=== PATIENT | male | born 2005 | race Hispanic/Latino ===

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

== ENCOUNTER 2024-06-14 13:48 | Emergency (ER) | payer SELFPAY ==
[~2024-06-14] VITALS: Ht 177.8 cm; Wt 125.2 kg
[~2024-06-14 13:48] MED LIST: IBUP-2070 PO
--- NOTE | 2024-06-14 14:25 | ERN ---
ED Note History of Present Illness Stated Complaint: RIGHT EYE PAIN Chief Complaint: Eye Problems Time Seen by MD: 13:48 Time Seen by Midlevel: 13:48 Dictation: The patient is a 19-year-old male with no past medical history who presents to the emergency department with complaints of right eye pain onset a week ago. Patient reports he had fallen a in hit him so with the corner of a a furniture in the eye. Reports he was seen at [facility] and discharge with no home treatments. Patient denies any visual deficits. Allergies: Coded Allergies: No Known Allergies (Unverified Allergy, Unknown, 06/15/22) Home Meds Active Scripts Ibuprofen (Ibuprofen) 600 Mg Tablet, 600 MG PO Q6H PRN for PAIN, #30 TAB Prov:WILEY RODGERS 06/15/22 Past Medical History Past Medical History: No Pertinent History Surgical History: None RN Note Reviewed/Agreed w/PFSH: Yes Review of System Dictation Constitutional: Negative for fever,chills, and weight loss Eyes: Negative for discharge. Positive for injury, pain,redness, ENT: Negative for injury,pain or swelling Cardiovascular: Negative for chest pain, palpitations, and edema Respiratory: Negative for shortness of breath, cough, and wheezing, Abdomen/GI: Negative for abdominal pain, nausea, vomiting, diarrhea, and constipation Back: Negative for injury and pain : Negative for injury, bleeding and discharge MS/Extremity: Negative for injury and deformity Skin: Negative for rash, and discoloration Neuro: Negative for headache, weakness, numbness, tingling, and seizure Psych: Negative for suicide ideation, homicidal ideation, and hallucinations Initial Vital Sign VS Vital Signs Date Time Temp Pulse Resp B/P (MAP) Pulse Ox O2 Delivery O2 Flow Rate FiO2 06/14/24 13:52 98.4 102 20 118/63 99 Room Air 0 06/14/24 14:56 21 Physical Exam Dictation Vital Signs reviewed General Appearance: Alert, oriented x 3, no acute distress, well developed, nourished. Head and Face: non-traumatic. Eyes: PERRL, pink conjunctivas, eyelid no trauma, anterior chamber with arcus senilis. Ears: Pinnas intact and no signs of trauma or erythema ear canals clear and no discharge TM no erythema Nose: No discharge, no bleeding. Oropharynx: Mouth normal, tongue pink. pharynx clear,no erythema, tonsils no exudates, no abscesses noted, mucous membrane moist Neck: Supple, non-tender, no thyromegaly, no masses, no JVD, no bruits Breast:Deferred Chest:No tenderness, no crepitus, no paradoxical movement, no retractions Lungs:Clear, well-ventilated, symmetric, no rales, no wheezing, no rhonchi, no stridor, good breath sounds bilaterally Heart: Regular rate, regular rhythm, no murmur, no gallops Vascular: no peripheral edema, Abdomen: Soft, positive bowel sounds, nondistended, no guarding, nontender, no rebound, no masses no hepatomegaly, no splenomegaly, no Barton's sign, no hernias. Rectal: Deferred Genital: Deferred Neurological: Normal speech, motor function intact, sensory function intact Musculoskeletal: Neck nontender, full range of motion, back nontender, full range of motion, Extremities: nontender, full range of motion Skin: Color pink, dry, no turgor, no rash, no lacerations, no abrasions, no contusions. Lymphatic: Deferred Results (Laboratory/Radiology) Labs Reviewed?: Yes ED Course ED Course Orders Procedure Category Date Status Time Tetracaine Hcl PHA 06/14/24 Complete (Pontocaine 0.5% 14:00 Fluorescein Sodium PHA 06/14/24 Complete (Fwxck-N-Ojfsb At) 14:00 Current Medications Medications (Trade) Dose Ordered Sig/Jenna Route PRN Reason Start Time Stop Time Status Last Admin Dose Admin Fluorescein Sodium (Uopjs-Q-Gjftx At) 1 strip ONCE ONCE OP 06/14/24 14:00 06/14/24 14:03 DC 06/14/24 14:40 Tetracaine HCl (Pontocaine 0.5% Ophth Soln) 2 drop ONCE ONCE OP 06/14/24 14:00 06/14/24 14:03 DC 06/14/24 14:39 Vital Signs Date Time Temp Pulse Resp B/P (MAP) Pulse Ox O2 Delivery O2 Flow Rate FiO2 06/14/24 14:56 98.1 95 16 116/60 99 Room Air* 0 21 06/14/24 13:52 98.4 102 20 118/63 99 Room Air 0 Medical Decision Making MDM The patient is a 19-year-old male with no past medical history who presents to the emergency department with complaints of right eye pain onset a week ago. Patient reports he had fallen a in hit him so with the corner of a a furniture in the eye. Reports he was seen at [facility] and discharge with no home treatments. Patient denies any visual deficits. On physical exam patient did not have any obvious abrasions to conjunctiva . Ocular motor intact. No obvious injury to pupil. Patient denies any visual deficits. Patient instructed to follow up with a Ophthalmology as soon as he gets discharged. Patient agrees to follow up. Differential diagnosis: Corneal abrasion, conjunctivitis, foreign body Need for hospitalization: Patient does not meet criteria for hospitalization. There are no social concerns with this patient. DX & DISP Disposition: Discharge Departure Impression: Primary Impression: Pain, eye, right Condition: Stable Additional Instructions: Please follow up with brazing machine operator automatic as soon as possible. [facility] [address], [facility] [phone] FOLLOW-UP WITH PRIMARY CARE PROVIDER IN 1 TO 2 DAYS. TAKE MEDICATIONS DIRECTED HERE IN THE EMERGENCY ROOM. OKAY TO CONTINUE HOME MEDICATIONS UNLESS OTHERWISE DISCUSSED DURING YOUR VISIT IN THE EMERGENCY ROOM TODAY. RETURN TO YOUR NEAREST EMERGENCY ROOM IF SYMPTOMS WORSEN OR IF THERE IS NO IMPROVEMENT. CALL 911 IF YOU NEED IMMEDIATE ASSISTANCE. TAKE TYLENOL OR MOTRIN [id number] NEEDED AND IF NO CONTRAINDICATIONS ARE PRESENT. INCREASE ORAL HYDRATION. A WOUND CULTURE OR URINE CULTURE WAS ORDERED HERE IN THE EMERGENCY ROOM DEPARTMENT PLEASE FOLLOW-UP WITH PRIMARY CARE PROVIDER AND ADVISE THEM TO GET REPEAT PORTS FROM OUR FACILITY. IF YOU HAD ANY BRAEDEN WRAP/SPLINTS THAT WERE APPLIED HERE, PLEASE DO NOT REMOVE THEM UNTIL YOU SEE YOUR PRIMARY CARE OR SPECIALTY. Referrals: SELF,REFERRAL (PCP) Time of Disposition: 14:52 I have examined patient, & reviewed all documents, & agreed W/ the Diagnosis, and Plan RASHEED MARIN Jun 14, 2024 14:25 SANTOS KAUFFMAN DO Jun 16, 2024 10:25
[2024-06-14] MEDS: TETRACAINE HCL 0.5% 4 ML OPHTH SOLN OP ONE (14:39)
[2024-06-14] MEDS: FLUORESCEIN SODIUM 1 STRIP STRIP OP ONE (14:40)
[2024-06-14 14:56] VITALS: BP 116/60; PULSE 95; RESP 16; TEMP 98.1; O2SAT 99
--- NOTE | 2024-06-14 15:05 | NUR ---
UNABLE TO DEPART DUE TO REGISTRATION PROCESS
== END 2024-06-14 15:15 | disposition home or self-care (01) ==
LOC: EDH 13:48
DX: H57.11 Ocular pain, right eye (principal); Z79.899 Other long term (current) drug therapy; W18.39XA Other fall on same level, initial encounter; Y93.89 Activity, other specified; Y92.89 Other specified places as the place of occurrence of the external cause; Y99.8 Other external cause status
CPT/HCPCS: 99283

== ENCOUNTER 2024-07-07 01:20 | Emergency (ER) | payer SELFPAY ==
[~2024-07-07] VITALS: Ht 177.8 cm; Wt 124.7 kg
--- NOTE | 2024-07-07 02:02 | ERN ---
ED Note History of Present Illness Stated Complaint: C/O PAIN TO PENIS WITH PAIN/BURNING WHEN VOIDING Chief Complaint: Penis Problem Time Seen by MD: :27 Time Seen by Midlevel: :30 Dictation: 19-year-old male coming in complaining of dysuria upon voiding for three days. Denies any fevers, back pain, nausea, vomiting or abdominal pain. Allergies: Coded Allergies: No Known Allergies (Unverified Allergy, Unknown, 06/15/22) Home Meds Active Scripts Sulfamethoxazole/Trimethoprim (Bactrim Ds Tablet) 800 Mg-160 Mg Tablet, 1 TAB PO BID for 7 Days, #14 TAB 0 Refills Prov:LYNN LYONS RV TECHNICIAN 07/07/24 Ibuprofen (Ibuprofen) 600 Mg Tablet, 600 MG PO Q6H PRN for PAIN, #30 TAB Prov:WILEY RODGERS V A R [employer]LECTIONS REP 06/15/22 Past Medical History Past Medical History: No Pertinent History Surgical History: None Review of System Dictation Constitutional: Negative for fever,chills, and weight loss Eyes: Negative for injury, pain,redness, and discharge ENT: Negative for injury,pain or swelling Cardiovascular: Negative for chest pain, palpitations, and edema Respiratory: Negative for shortness of breath, cough, and wheezing, Abdomen/GI: Negative for abdominal pain, nausea, vomiting, diarrhea, and constipation Back: Negative for injury and pain : Complaining of pain when he urinates MS/Extremity: Negative for injury and deformity Skin: Negative for rash, and discoloration Neuro: Negative for headache, weakness, numbness, tingling, and seizure Psych: Negative for suicide ideation, homicidal ideation, and hallucinations Review of Systems: was completed Initial Vital Sign VS Vital Signs Date Time Temp Pulse Resp B/P (MAP) Pulse Ox O2 Delivery O2 Flow Rate FiO2 07/07/24 01:23 97.3 100 20 123/96 99 Room Air Physical Exam Dictation General: awake, alert, NAD Head/Face: Normocephalic, atraumatic Eyes: PERRL, EOMI, vision at baseline ENT: oral cavity clear, TMs clear, no signs of infection Neck: Trachea midline, supple, no nuchal rigidity Cardiovascular: RRR, normal S1/S2, No MRGs, no JVD Respiratory: CTAB, no respiratory distress, No rales or wheezes Abdomen: Soft, non-tender, non-distended, normal bowel sounds, no guarding or rebound. Skin: Warm, dry, normal turgor, no rash MS/Extremity: Pulses equal, no cyanosis, neurovascular intact, FROM Neuro: COAx4, GCS 15, strength 5/5, CN 2-12 intact, normal cerebellar exam, normal gait, Psych: Normal behavior, mood, and affect normal Results (Laboratory/Radiology) Laboratory/Radiology Laboratory Tests Test 07/07/24 01:25 Urine Color YELLOW (YELLOW) Urine Appearance CLOUDY (CLEAR) H Urine pH 6.0 (5.0-8.0) Urine Specific [place] 1.024 (1.001-1.031) Urine Protein NEGATIVE mg/dL (NEGATIVE) Urine Glucose (UA) NEGATIVE mg/dL (NEGATIVE) Urine Ketones NEGATIVE mg/dL (NEGATIVE) Urine Occult Blood SMALL (NEGATIVE) H Urine Nitrate NEGATIVE (NEGATIVE) Urine Bilirubin NEGATIVE mg/dL (NEGATIVE) Urine Urobilinogen 2.0 mg/dL (0.2-1.0) H Urine Leukocyte Esterase 500 Marvin/uL (NEGATIVE) H Urine RBC 11-25 /HPF (0-1) H Urine WBC TNTC /HPF (0-1) H Urine Squamous Epithelial Cells RARE /HPF (0-2) Urine Bacteria FEW /HPF (None Seen) Labs Reviewed?: Yes ED Course ED Course Orders Procedure Category Date Status Time Urinalysis Profile LAB 07/07/24 Complete 01:27 Chlamydia & Gc Pcr [facility]I 07/07/24 In Process 01:27 Culture Urine CAMI 07/07/24 In Process 02:41 Ceftriaxone 1g Vial PHA 07/07/24 Complete (Rocephine 1g Inj) 02:45 Ketorolac PHA 07/07/24 Verified Tromethamine 15mg/Ml 02:52 Current Medications Medications (Trade) Dose Ordered Sig/Jenna Route PRN Reason Start Time Stop Time Status Last Admin Dose Admin Ceftriaxone Sodium (ROCEphine 1G INJ) 1 gm ONCE STAT IVPB 07/07/24 02:45 07/07/24 02:46 DC Vital Signs Date Time Temp Pulse Resp B/P (MAP) Pulse Ox O2 Delivery O2 Flow Rate FiO2 07/07/24 01:23 97.3 100 20 123/96 99 Room Air Medical Decision Making MDM MDM: 19-year-old male coming in complaining of dysuria upon voiding for three days. Denies any fevers, back pain, nausea, vomiting or abdominal pain. Patie nt states he is not concerned for any STD infections. Denies having any lesions or ulcers around the penile area. Denies any discharge. UA shows evidence of urinary tract infection. Rocephin given in the emergency room patient will be discharged with antibiotics. Discussed with the patient on findings and educated follow up with PCP in 1-2 days. Discussed with the patient if he begins to develop any fevers, nausea and vomiting or back pain to return back to the ER. Patient verbalized understanding, answered all questions. Differential diagnosis: UTI, , STDs Rationale: Tests considered and ordered secondary to shared decision making include: Previous outside records reviewed: Old ER visits. Risk of complication and/or morbidity or mortality of patient management: None Medications-Per medication reconciliation Need for hospitalization: Patient does not meet criteria for hospitalization. Need for emergency major/minor surgery: No There are no social concerns with this patient. Prescription drug management Prescriptions will include symptomatic care Patient's prior external medical records from other ER visits were reviewed by me as indicated. Prior testing and results from previous visits were reviewed. Prior tests were taken into account with medical decision making and resource utilization, independent historian/historians were used to obtain complete medical history. I independently interpreted the test that were performed, results were reviewed by me and considered findings on radiology if ordered. Medical management and examination interpretation discussions were had by me with other qualified healthcare professionals as indicated for the patient's care. DX & DISP Disposition: Discharge Departure Impression: Primary Impression: Urinary tract infection Condition: Stable Scripts Sulfamethoxazole/Trimethoprim (Bactrim Ds Tablet) 800 Mg-160 Mg Tablet 1 TAB PO BID for 7 Days, #14 TAB 0 Refills Prov: LYNN LYONS RV TECHNICIAN 07/07/24 Additional Instructions: Take antibiotics as prescribed. If you began to develop any fevers, nausea and vomiting, back pain return back to the ER, otherwise follow up with the PCP in 1-2 days. Referrals: SELF,REFERRAL (PCP) Time of Disposition: 02:47 I have reviewed the case, and I agree with, Diagnosis and Plan I PERFORMED A SUBSTANTIVE PORTION OF THE VISIT. I HAVE REVIEWED AND PERSONALLY MADE AND APPROVE THE MANAGEMENT PLAN THAT IS DOCUMENTED IN THE NOTE BY MYSELF OR THE AP P. I ACKNOWLEDGE FULL RESPONSIBILITY FOR THE PATIENT'S MANAGEMENT PLAN. LYNN LYONS RV TECHNICIAN Jul 07, 2024 02:02
[2024-07-07 02:39] LABS: APPEARANCE,URINE CLOUDY (CLEAR); BILIRUBIN,URINE NEGATIVE (NEGATIVE); COLOR,URINE YELLOW (YELLOW); GLUCOSE, URINE (UA) NEGATIVE (NEGATIVE); KETONES,URINE NEGATIVE (NEGATIVE); LEUKOCYTE ESTERASE ,URINE 500 Leu/uL (NEGATIVE); NITRATE,URINE NEGATIVE (NEGATIVE); OCCULT BLOOD,URINE SMALL (NEGATIVE); PROTEIN,URINE NEGATIVE (NEGATIVE)
[2024-07-07 02:40] LABS: ADD UA MICROSCOPIC YES
[2024-07-07 02:43] LABS: BACTERIA,URINE FEW /HPF (None Seen); MUCUS,URINE RARE LPF (None Seen); SQUAMOUS EPITHELIAL CELL,UR RARE /HPF (0-2); WBC,URINE TNTC /HPF (0-1)
[2024-07-07] MEDS ORDERED: SULF1TAB42 PO (02:47)
[2024-07-07] MEDS: cefTRIAXone 1G VIAL IVPB STA (03:07)
[2024-07-07] MEDS: ketOROlac 15MG/ML VIAL (15MG/ML) IV STA (03:07)
[2024-07-07 03:11] VITALS: BP 127/89; PULSE 94; RESP 20; TEMP 97.6; O2SAT 99
== END 2024-07-07 03:12 | disposition home or self-care (01) ==
LOC: EDH 01:20
DX: N39.0 Urinary tract infection, site not specified (principal)
CPT/HCPCS: 99284; 96374; 96375; 87086; 87491; 87591; 81001; J1885; J0696